=== PATIENT | female | born 1970 | race Caucasian/White ===

== ENCOUNTER 2016-08-03 13:15 | Inpatient (IN) | payer OTHER ==
--- NOTE | ~2016-08-03 | CT71 ---
[facility] A Service [facility] RADIOLOGY TEXT RESULTS PATIENT: ADAM CALDWELL LOCATION: SEDOF : 70 UNIT #: [id number] AGE: [address]: SARAH BAUM MD SEX: F ORDER DR: [id number] [place] [id number] I MR#: [id number] Acc #: [id number] NAME: ADAM CALDWELL. : 1970 SEX: F STUDY DATE/TIME: 08/03/2016 15:32 UNIT: SEDOF ROOM: [facility] STUDY DESCRIPTION: CT Head Wo Contrast Attending Physician: Sarah Baum M.D. Ordering Physician: Kacy Juarez M.D. Primary Care Physician: Denny Posadas M.D. MEDICAL IMAGING REPORT This report is preliminary unless electronic signature is present. EXAM CT scan of the head without contrast INDICATIONS Syncope, dizziness, blurred vision and headache for 5 days. TECHNIQUE Axial noncontrast images were obtained from the skull base to the vertex. This CT exam was performed with one or more of the following radiation dose reduction techniques: automatic exposure control, adjustment of mA and/or kV according to patient size, and iterative reconstruction. FINDINGS Ventricular size and configuration are normal. There is no evidence of acute infarct or hemorrhage. There are no extraaxial fluid collections. No mass lesion or mass effect is seen. There are no skull fractures. IMPRESSION Normal noncontrast head CT. Dictated by... Raul Artis M.D. THIS IS AN ELECTRONICALLY VERIFIED REPORT Raul Artis M.D. at 08/04/2016 6:28 AM NIKUNJ/jody TD: 08/03/2016 21:20 JOB #: [id number] MEDICAL IMAGING REPORT [facility] A Service of [facility] RADIOLOGY TEXT RESULTS PATIENT: ADAM CALDWELL LOCATION: SEDOF : 70 UNIT #: [id number] AGE: [address]: SARAH BAUM MD SEX: F ORDER DR: Page 1 of 1
--- NOTE | ~2016-08-03 | EKG ---
PATIENT: ADAM CALDWELL UNIT #: [id number] Ventricular Rate: 78 BPM Atrial Rate: 78 BPM P-R Interval: 156 ms QRS Duration: 92 ms Q-T Interval: 426 ms QTC Calculation(Bezet): 485 ms P [place]: 29 degrees Calculated R [place]: 5 degrees Calculated T [place]: 35 degrees Diagnosis Line: Normal sinus rhythm Diagnosis Line: Nonspecific T wave abnormality Diagnosis Line: Prolonged QT Diagnosis Line: Abnormal ECG Diagnosis Line: No previous ECGs available Diagnosis Line: Confirmed by HENRRY JAMESON MD ([id number]) on Diagnosis Line: 08/04/2016 2:48:48 PM INTERPRETING MD: TRINO PERES
--- NOTE | ~2016-08-03 | CR72 ---
[facility]. [facility] A Service of [facility] RADIOLOGY TEXT RESULTS PATIENT: ADAM CALDWELL LOCATION: SEDOF [id number] : [birth year] UNIT #: [id number] AGE: [address]: SARAH BAUM MD SEX: F ORDER DR: [id number] [place] [id number] MR#: [id number] Acc #: [id number] NAME: ADAM CALDWELL. : 1970 SEX: F STUDY DATE/TIME: 08/03/2016 15:25 UNIT: SEDOF ROOM: [facility] STUDY DESCRIPTION: CR Chest Single View Portable Attending Physician: Sarah Baum M.D. Ordering Physician: Kacy Juarez M.D. Primary Care Physician: Denny Posadas M.D. MEDICAL IMAGING REPORT This report is preliminary unless electronic signature is present. EXAM Portable chest radiograph INDICATIONS 5 days with shortness of breath. Patient has also had dizziness and near-syncope. FINDINGS Heart size is within normal limits. Lungs appear clear. No focal infiltrates are identified. There is probably some scarring within the minor fissure. There is no pneumothorax or pleural effusion. Dictated by... Keeley Aguirre M.D. THIS IS AN ELECTRONICALLY VERIFIED REPORT Keeley Aguirre M.D. at 08/03/2016 10:42 PM AFF/psc TD: 08/03/2016 21:54 JOB #: [id number] MEDICAL IMAGING REPORT Page 1 of 1
[~2016-08-03 13:15] MED LIST: CENTRUM PO; IBUPROFEN800 MG PO; NO MEDICATIONS
[2016-08-03 14:52] LABS: URINE SOURCE CLEAN CATCH
[2016-08-03 14:55] LABS: BASOPHIL% 0.3 % (0-2.5); MONOCYTE# 0.1 X10e3 (0-1.0); NEUTROPHIL# 2.3 X10e3 (1.5-7.1); WHITE BLOOD COUNT 3.5 X10e3 (4.0-10.5)
[2016-08-03 14:56] LABS: POC - CKMB <1.0 ng/mL (0.0-7.9)
[2016-08-03 14:57] LABS: EOSINOPHIL% 1.2 % (0.0-7.0); HEMATOCRIT 18.4 % (35.0-45.0); LYMPHOCYTE# 1.1 X10e3 (1.0-3.5); LYMPHOCYTE% 30.9 % (17.0-45.0); MEAN CELL VOLUME 125.3 FL (83-96); MEAN CORPUSCULAR HEMOGLOBIN 43.1 PG (28-34); MEAN CORPUSCULAR HGB CONC 34.4 g/dL (30-36); MEAN PLATELET VOLUME 8.4 FL (6.5-11.5); MONOCYTE% 2.7 % (3.0-12.0); NEUTROPHIL% 64.9 % (40-75); RED BLOOD COUNT 1.47 X10e (3.90-5.30); RED CELL DISTRIBUTION WIDTH 20.2 % (11.0-15.5)
[2016-08-03 14:57] LABS: POC - TROPONIN <0.05 ng/mL (<=0.05)
[2016-08-03 15:03] LABS: URINE APPEARANCE CLEAR; URINE BILIRUBIN NEG (NEG); URINE BLOOD NEG (NEG); URINE COLOR YELLOW; URINE GLUCOSE NEG (NORM); URINE KETONE NEG (NEG); URINE LEUKOCYTE ESTERASE NEG (NEG); URINE NITRATE NEG (NEG); URINE PROTEIN NEG (NEG)
[2016-08-03 15:04] LABS: MICRO INDICATED? NO
[2016-08-03 15:13] LABS: AMPHETAMINE NEG (NEG); BARBITURATES NEG (NEG); BENZODIAZEPINES NEG (NEG); COCAINE NEG (NEG); MARIJUANA NEG (NEG); OPIATES NEG (NEG); TRICYCLIC ANTIDEPRESSANTS NEG (NEG); U METHADONE NEG (NEG)
[2016-08-03 15:28] LABS: ALBUMIN SERUM 4.3 g/dL (3.5-5.0); BILIRUBIN, DIRECT 0.3 mg/dL (0.0-0.2); BILIRUBIN,INDIRECT 1.4 mg/dL (0.0-0.9); BILIRUBIN,TOTAL 1.7 mg/dL (0.2-2.0); BUN/CREATININE RATIO 21.66; CALCIUM SERUM 9.1 mg/dL (8.4-10.2); CREATININE SERUM 0.6 mg/dL (0.6-1.4); GLOM FILT RATE Estimated 109.3 mL/min (>60); POTASSIUM 3.5 mmol/L (3.5-5.1); PROTEIN TOTAL SERUM 6.8 g/dL (6.0-8.3)
[2016-08-03 15:38] LABS: DIFF IND YES; HEMOGLOBIN 6.3 gm/dL (12.0-16.0); PLATELET COUNT 84 X10e3 (140-420)
[2016-08-03 15:42] LABS: NUCLEATED RED BLOOD CELL 2 /100 ([, 0]); PLATELET ESTIMATE DECREASED (NORMAL)
[2016-08-03 15:43] LABS: HYPOCHROMIA SL; MICROCYTOSIS MOD; POIKILOCYTOSIS SL; POLYCHROMASIA SL; TEAR DROP CELLS PRESENT
[2016-08-03 15:44] LABS: OVALOCYTES PRESENT; SCHISTOCYTES PRESENT
[2016-08-04] MEDS ORDERED: MULTI-DAY VITA1 EACH PO (12:45)
[2016-08-04] MEDS ORDERED: THIAMINE HCL100 M1 PO (12:46)
[2016-08-04] MEDS ORDERED: FERROUS SULFATE PO (12:47)
[2016-08-04] MEDS ORDERED: VITAMIN B12 SUBQ (12:53)
== END 2016-08-04 14:53 | disposition home or self-care (01) | DRG 812 ==
LOC: SED 13:15 → SEDOF 16:44 → C3A PCU 23:23
PROVIDERS: Student in an Organized Health Care Education/Training Program
PROC: 30233N1 Transfusion of Nonautologous Red Blood Cells into Peripheral Vein, Percutaneous Approach (ICD-10-PCS; principal; 2016-08-04)
DX: D51.9 Vitamin B12 deficiency anemia, unspecified (principal); D61.818 Other pancytopenia; D50.9 Iron deficiency anemia, unspecified; F17.210 Nicotine dependence, cigarettes, uncomplicated; Z72.89 Other problems related to lifestyle
CPT/HCPCS: 36415; 70450; 71010; 80048; 80076; 80307; 81003; 82270; 82553; 82607; 82728; 82746; 82947; 83540; 83550; 83880; 84484; 84703; 85025; 85027; 85044; 85610; 85730; 86850; 86900; 86901; 86923; 93005; 96361; 96374; 96375; 99285; 99291; J1885; J2405; J3420; P9016

== ENCOUNTER 2016-10-21 12:57 | Emergency (ER) | payer OTHER ==
[~2016-10-21 12:57] MED LIST changes: +FERROUS SULFATE PO; +MULTI-DAY VITA1 EACH PO; +THIAMINE HCL100 M1 PO; +VITAMIN B12 SUBQ
== END 2016-10-21 16:11 | disposition home or self-care (01) ==
LOC: SED 12:57
DX: S01.01XA Laceration without foreign body of scalp, initial encounter (principal); W45.8XXA Other foreign body or object entering through skin, initial encounter; Y92.009 Unspecified place in unspecified non-institutional (private) residence as the place of occurrence of the external cause; F17.210 Nicotine dependence, cigarettes, uncomplicated; Z23 Encounter for immunization
CPT/HCPCS: 12001; 90471; 90715; 99283